=== PATIENT | male | born 1995 | race Caucasian/White ===

== ENCOUNTER 2020-02-07 16:33 | Outpatient (REF) | payer OTHER, SELFPAY ==
--- NOTE | 2020-02-07 | XR_ITS ---
EXAMINATION: XR ANKLE, RIGHT CLINICAL INFORMATION: Pain. Evaluate for fracture. COMPARISON: None TECHNIQUE: AP, lateral, and mortise views of the right ankle. FINDINGS: Bones have normal alignment. The ankle joint space and syndesmotic space are normal. No arthritic deformity. No fracture, subluxation or focal soft tissue swelling. XR/XR ankle RT min 3V IMPRESSION: Normal right ankle.
== END 2020-02-07 16:34 | disposition home or self-care (01) ==
LOC: HO.XRAY 16:33
PROVIDERS: PCP Internal Medicine; Visit Provider Internal Medicine
DX: M25.571 Pain in right ankle and joints of right foot (principal)
CPT/HCPCS: 73610

== ENCOUNTER 2022-10-13 14:15 | Outpatient (REF) | payer BC, SELFPAY ==
--- NOTE | ~2022-10-13 | XR_ITS ---
EXAMINATION: XR CHEST CLINICAL INFORMATION: Chest pain COMPARISON: None available. TECHNIQUE: 2 views of the chest were obtained. FINDINGS: Cardiac silhouette is normal in size. The lungs are well aerated. There is no lobar consolidation. No pleural effusion or pneumothorax. No acute osseous abnormality. XR/XR chest 2V IMPRESSION: No acute pulmonary pathology.
--- NOTE | 2022-10-13 14:22 | ECG_ITS ---
Test Reason : cp Blood Pressure : / mmHG Vent. Rate : 061 BPM Atrial Rate : 061 BPM P-R Int : 132 ms QRS Dur : 106 ms QT Int : 434 ms P-R-T Axes : 014 019 031 degrees QTc Int : 436 ms Normal sinus rhythm Normal ECG No previous ECGs available Referred By: Adiel Hamm Electronically Signed By:DOMINIQUE VELASCO
== END 2022-10-13 14:16 | disposition home or self-care (01) ==
LOC: HO.XRAY 14:15
PROVIDERS: PCP Physician Assistant; Visit Provider Physician Assistant
DX: R07.9 Chest pain, unspecified (principal)
CPT/HCPCS: 71046; 93005

== ENCOUNTER 2022-10-27 15:39 | Outpatient (REF) | payer BC, SELFPAY ==
--- NOTE | ~2022-10-27 | XR_ITS ---
EXAMINATION: XR SKULL CLINICAL INFORMATION: Localized swelling, mass and lump. Unspecified location. COMPARISON: None available. TECHNIQUE: 5 views of the skull were obtained. FINDINGS: No discrete displaced fractures. Paranasal sinuses are grossly clear. No abnormal soft tissue calcifications. XR/XR skull min 4V IMPRESSION: No discrete radiographic abnormality, however radiographic examinations have very limited sensitivity for detection of nondisplaced stress fractures as well as soft tissue abnormalities. Therefore, further evaluation with CT or MRI could be obtained if clinically deemed appropriate.
--- NOTE | ~2022-10-27 | XR_ITS ---
EXAMINATION: XR HIP, RIGHT, WITH AP PELVIS CLINICAL INFORMATION: Right hip pain. COMPARISON: None available. TECHNIQUE: Two views of the right hip. Also, AP view of pelvis. FINDINGS: Pelvic bones have normal alignment. Joint space of each hip is maintained. At the right hip, the acetabulum has normal shape and provides a normal degree of femoral head coverage. There is slightly aspherical shape of the right femoral head with presence of mild osseous prominence along the posterior head-neck junction, possibly predisposing to femoroacetabular impingement. The articular surface has normal smooth contour. No evidence of osteonecrosis, fracture or subluxation. The soft tissues are unremarkable. XR/XR hip RT w PEL1V IMPRESSION: * No acute abnormality to right hip. No fracture or subluxation. * No evidence of arthritic disease. 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
== END 2022-10-27 15:40 | disposition home or self-care (01) ==
LOC: HO.XRAY 15:39
PROVIDERS: PCP Physician Assistant; Visit Provider Physician Assistant
DX: M25.551 Pain in right hip (principal); R22.0 Localized swelling, mass and lump, head
CPT/HCPCS: 70260; 73502

== ENCOUNTER 2022-12-23 14:53 | Outpatient (AMB) | payer BC, SELFPAY ==
--- NOTE | 2022-12-23 14:54 | MHC.OFFVIS ---
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 He describes his discomfort as achy in nature. He also reports intermittent ?popping sensation? along the lateral aspect of his right hip. He denies any numbness or tingling in either of his legs. He denies any trauma to his right hip or leg. He does not take any medicines for his discomfort. 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 Current occupational exposures/hazards: No Cognitive needs: No Hearing needs: No Vision needs: No Physical Exam Vital Signs: BMI result Body Mass Index 24.1 Const Other: Well-nourished well-developed very friendly male awake alert and oriented x3 in no acute distress Extrem Other: Bilateral lower extremity examination shows good capillary refill, no skin lesions noted, normal sensation light touch Right hip examination shows full range of motion when compared to his left hip, minimal discomfort with range of motion, tenderness over his iliotibial band, no overlying skin lesions Results Reviewed Results Reviewed: X-rays of the patient's right hip show minimal diffuse joint space narrowing, no acute bony abnormalities, no significant acetabular dysplasia Assessment & Plan Assessment & Plan (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 Hylton presents with intermittent discomfort and popping sensation along the lateral aspect of his right hip most likely due to iliotibial band syndrome. I had a lengthy discussion with the patient regarding the treatment options. Stretching exercises and activity modifications were discussed at length with the patient. The patient does not wish to go to formal physical therapy at this time. He will follow up with me on an as-needed basis should his symptoms worsen in any way. Feel free to call me at any time should questions regarding his orthopedic management arise. Thank you very much for asking me to see this very friendly gentleman. I spent 22 minutes in reviewing the patient's records and imaging studies, seeing the patient and documenting in the medical record. Coding Level of Care Code New Pt Level 2 (07452) Diagnoses ITB syndrome M76.30
[2022-12-23 15:04] VITALS: BMI 24.1
== END 2022-12-23 15:17 | disposition home or self-care (01) ==
PROVIDERS: PCP Physician Assistant; Visit Provider Orthopaedic Surgery
DX: M76.30 Iliotibial band syndrome, unspecified leg (principal)
CPT/HCPCS: 99202

== ENCOUNTER → 2022-12-23 14:53 | Outpatient (BNVA) | payer BC, SELFPAY | PROVIDERS: PCP Physician Assistant; Visit Provider Orthopaedic Surgery ==

== ENCOUNTER 2023-12-29 14:06 | Outpatient (AMB) | payer BC, SELFPAY ==
--- NOTE | 2023-12-29 14:13 | MHC.PC.OV ---
Intake Visit Reasons: Certain things are concerning me with my health. Financial Coordinator Required: No Accompanied by: Self / Same As Patient Allergies No Known Allergies Allergy (Verified 12/29/23 14:46) Medication List - Last Reconciled 12/29/23 by Adiel Hamm PA-C cetirizine (Zyrtec) 10 mg PO DAILY PRN citalopram (Celexa) 10 mg PO DAILY 30 days mupirocin 2% 1 appl topical BID 15 days Tobacco use date assessed: 12/29/23 Dental Screening Dental Screen Date: 12/29/23 Did you have a dental visit in the last 12 months?: Yes Did you have a dental problem in the last 6 months where you did not have access to dental care?: No Was dental information given to patient?: Patient has dentist HPI Certain things are concerning me with my health. HPI Details Patient is a 28-year-old male here today for concerns about his health. He reports over last several weeks having a lower back issue. He reports when he lays down he has some discomfort in the back part of his left leg. He does report some upper back and lower back injuries playing basketball years ago. He also does report having some right hip discomfort and crepitus when he flexes and extends his right hip. He feels that his pelvis is not align. 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 1. Little interest or pleasure in doing things: several days 2. Feeling down, depressed, or hopeless: several days 3. Trouble falling or staying asleep, or sleeping too much: not at all 4. Feeling tired or having little energy: not at all 5. Poor appetite or overeating: not at all 6. Feeling bad about yourself - or that you are a failure or have let yourself or your family down: not at all 7. Trouble concentrating on things, such as reading the newspaper or watching television: not at all 8. Moving or speaking so slowly that other people could have noticed. Or the opposite - being so fidgety or restless that you have been moving around a lot more than usual: not at all 9. Thoughts that you would be better off or of hurting yourself in some way: not at all Total score: 2 Depression Screening Interpretation: Negative Depression Screening Done: Yes 97710 - PHQ-9 Billing: Yes Source: Developed by Drs. Umberto Mills, Alicia Hearn, James Bello and colleagues, with an educational blu from [employer]. Thrive Questionnaire Date Thrive assessed: 12/29/23 I am a: Patient What is your living situation today?: I have a steady place to live Within the past 12 months, did the food you bought not last and you didn't have the money to get more?: Never true Within the past 12 months, did you worry whether your food would run out before you got money to buy more?: Never true Do you have trouble paying for medicines?: No Do you have trouble getting transportation to medical appointments?: No Do you have trouble paying your heating and electricity bill?: No Do you have trouble taking care of your child, family member or friend?: No Do you have trouble with day-to-day activities such as bathing, preparing meals, shopping, managing finances, etc.?: No Are you currently unemployed and looking for a job?: No Are you interested in more education?: No Please select the resources that you would like help with: None Currently or been in a relationship where the following occur: No concerns reported THRIVE Score: 0 AUDIT C Alcohol Use Questionnaire (AUDIT-C) 2. How many drinks containing alcohol do you have on a typical day when you are drinking?: 7 to 9 3. How often do you have six or more drinks on one occasion?: Weekly Total Score: 6 ROBBY-7 AMB Questionnaire ROBBY-7 Date ROBBY - 7 assessed: 12/29/23 Feeling nervous, anxious, or on edge: 0 = Not at all Not being able to stop or control worryin = Not at all Worrying too much about different things: 0 = Not at all Trouble relaxin = Not at all Being so restless that it is hard to sit still: 0 = Not at all Becoming easily annoyed or irritable: 0 = Not at all Feeling afraid as if something awful might happen: 0 = Not at all Total ROBBY-7 score (0-4 normal; 5-9 mild; 10-14 moderate; 15-21 severe): 0 Source: Developed by Drs. Umberto Mills, Alicia Hearn, James Bello and colleagues, with an educational blu from [employer]. ROBBY-7 Assessment Billing ROBBY-7 Assessment Tool: ROBBY-7 Assessment 64790 Review of Systems Const Denies headache(s) Eyes Denies loss of vision ENT Denies vertigo, Denies dizziness, Denies headache(s) and Denies sore throat Card Denies chest pain, Denies leg edema and Denies lightheadedness Resp Denies cough, Denies hemoptysis and Denies wheezing GI Denies abdominal pain, Denies melena, Denies constipation, Denies diarrhea and Denies vomiting Denies dysuria, Denies urinary frequency and Denies urinary urgency Musc Denies arthralgias, Denies joint swelling, Denies numbness and Denies tingling Neuro Denies Abnormal speech present, Denies behavioral changes, Denies vertigo, Denies dizziness, Denies headache(s), Denies loss of vision, Denies memory loss, Denies numbness and Denies tingling Psych Denies anxiety, Denies behavioral changes, Denies depression, Denies memory loss and Denies panic attacks Nacho/Lymph Denies easy bleeding and Denies easy bruising Aller/Immun Denies wheezing Physical exam (Primary Care) Tobacco/Smoking Status: Tobacco use Status Tobacco use date assessed 12/29/23 12/29/23 14:26 Patient Tobacco Use Status Never used Tobacco 12/29/23 14:15 e-Cigarette/Vaping Use Never Used 12/29/23 14:15 PHQ-9: PHQ-9 Score PHQ-9: Total score 2 12/29/23 14:15 Depression Screening Interpretation: Negative Thrive Assessment: Date of Thrive Assessment Date Thrive assessed 12/29/23 12/29/23 14:15 Currently or been in a relationship where the following occur: No concerns reported Const General: healthy appearing, no acute distress, alert and awake Nutritional Appearance: well nourished Orientation/consciousness: oriented to person, oriented to place and oriented to time HENMT Ears: TM's normal bilaterally General nose exam: Normal nasal mucous membranes and turbinates present Eyes Conjunctivae: conjunctivae normal Sclerae: sclerae normal Pupils: Equal, round and reactive pupils present Neck Neck: Yes no lymphadenopathy and Yes no JVD Thyroid: Thyroid normal Carotids: no bruits Resp Effort & Inspection: normal respiratory effort and not tachypneic Auscultation: no crackles, no rales, no rhonchi and no wheezes Cardio Rate: regular rate Rhythm: regular rhythm Heart sounds: no murmurs and normal S1 and S2 GI Palpation (GI): Soft to palpation, nontender, no hepatomegaly and no splenomegaly Auscultation: normal bowel sounds Skin General skin exam: no rashes or lesions noted and dry skin Neuro General: oriented to person, oriented to place and oriented to time Cranial nerves: Yes Equal, round and reactive pupils present Speech: No Abnormal speech present Gait exam (Neuro): Normal gait present Motor exam (neuro): no tremor noted Extrem Right upper extremity: full ROM Left upper extremity: full ROM Right lower extremity: full ROM; no edema Left lower extremity: full ROM; no edema Psych Mental Status: mental status grossly normal Speech and movement: Normal speech and movement present Affect: normal affect Attitude: cooperative Thought process: Normal thought process present Office Procedures Flu Questionnaire Does the patient have a severe egg allergy?: No Immunizations Fluarix Triv [id number] (PF) 45 mcg (15 mcg x 3)/0.5 mL IM syringe Performing Provider: Adiel Hamm PA-C [facility] [place] [facility] Documented (not given) by: SHELBY Stacy on 12/29/23 14:26 Reason Not Given: Patient Refused Coding Level of Care Code Est Pt Level 3 (76798) Diagnoses Lumbar radiculitis M54.16 Thoracic radiculitis M54.14 Additional Codes ROBBY-7 Assessment Billing - ROBBY-7 Assessment Tool: ROBBY-7 Assessment 29866 ([id number]) Assessment & Plan Assessment & Plan (1) Lumbar radiculitis: Code(s): M54.16 - Radiculopathy, lumbar region Category: Medical Plan: As per HPI will send for x-ray of his lumbar spine to evaluate for any advanced arthritis or disc height loss. He would likely benefit from formal physical therapy for his lower back radiculopathy. (2) Thoracic radiculitis: Code(s): M54.14 - Radiculopathy, thoracic region Category: Medical Plan: As per HPI Orders: Orders Influenza [id number] Immunization Today Z23 - Encounter for immunization XR lumbar spine 4V min Today M54.16 - Radiculopathy, lumbar region XR thoracic spine 3V Today M54.14 - Radiculopathy, thoracic region Comprehensive [place]. Panel Fast Today Z13.1 - Encounter for screening for diabetes mellitus Complete Blood Count no Diff Today Z13.1 - Encounter for screening for diabetes mellitus PT Evaluation and Treatment Today M54.16 - Radiculopathy, lumbar region Medications: New cyclobenzaprine 10 mg PO BEDTIME 14 days 14 tabs 0RF M54.16 - Radiculopathy, lumbar region
== END 2023-12-29 15:01 | disposition home or self-care (01) ==
LOC: HO.HMCH 14:07
PROVIDERS: PCP Physician Assistant; Visit Provider Physician Assistant
DX: M54.16 Radiculopathy, lumbar region (principal); M54.14 Radiculopathy, thoracic region; Z23 Encounter for immunization

== ENCOUNTER → 2023-12-29 14:06 | Outpatient (BNVA) | payer BC, SELFPAY | PROVIDERS: PCP Physician Assistant; Visit Provider Physician Assistant | DX: M54.16 Radiculopathy, lumbar region (principal); M54.14 Radiculopathy, thoracic region; Z28.21 Immunization not carried out because of patient refusal | CPT/HCPCS: 90471; 96127 ==

== ENCOUNTER 2024-04-29 08:32 | Outpatient (REF) | payer BC, SELFPAY ==
--- NOTE | ~2024-04-29 | XR_ITS ---
EXAMINATION: XR THORACIC SPINE CLINICAL INFORMATION: M54.14 - Radiculopathy, thoracic region COMPARISON: None available. TECHNIQUE: 3 views of the thoracic spine were obtained. FINDINGS: There is maintained thoracic kyphosis with mild dextroscoliosis mid dorsal spine. The vertebral heights and alignment and the disc heights are preserved. No visible acute fracture, lytic or sclerotic process seen. The soft tissues are normal. The paravertebral soft tissues are normal. XR/XR thoracic spine 3V IMPRESSION: Mild dextroscoliosis mid dorsal spine. No visible acute fracture, dislocation or subluxation seen. Electronically signed by: Barry Sanchez MD 05/01/2024 10:16 AM RICA
--- NOTE | ~2024-04-29 | XR_ITS ---
EXAMINATION: Lumbar spine 4 views. CLINICAL INDICATION: Radiculopathy lumbar region. COMPARISON: None. FINDINGS: There is normal lumbar lordosis. The vertebral heights and alignment is normal. The disc heights are normal. No visible acute fracture, dislocation or lytic process seen. The paravertebral soft tissues are normal. XR/XR lumbar spine 4V min IMPRESSION: Unremarkable lumbar spine exam. Electronically signed by: Barry Sanchez MD 05/01/2024 10:15 AM RICA
[2024-04-29 09:27] LABS: Hematocrit 43.6 % (42.0-52.0); Hemoglobin 15.5 g/dl (14.0-18.0); Mean Corpuscular HGB Conc 35.6 g/dl (31.0-36.0); Mean Corpuscular Hemoglobin 31.1 pg (27.0-33.0); Mean Corpuscular Volume 87.6 fL (80.0-98.0); Mean Platelet Volume 9.1 fL (9.4-12.4); Platelet Count 256 X10*3/uL (160-400); Red Blood Count 4.98 X10*6/uL (4.60-5.80); White Blood Count 7.6 X10*3/uL (4.8-10.8)
[2024-04-29 11:22] LABS: Alanine Aminotransferase 17 U/L (0-40); Albumin Level 4.5 g/dL (3.5-5.0); Alkaline Phosphatase 61 U/L (39-117); Anion Gap 13 (12-20); Aspartate Amino Transferase 24 U/L (5-37); Bilirubin Total 1.1 mg/dL (0.0-1.0); Blood Urea Nitrogen 10 mg/dL (9-16); Calcium 9.1 mg/dL (8.4-10.2); Carbon Dioxide 26 mmol/L (22-29); Chloride 105 mmol/L (96-108); Estimated Glomerular Filt Rate > 60; Glucose Fasting 95 mg/dL (60-99); Potassium 3.6 mmol/L (3.3-5.1); Sodium 140 mmol/L (135-145); Total Protein 7.7 g/dL (6.5-8.0)
== END 2024-04-29 08:33 | disposition home or self-care (01) ==
LOC: HO.LAB 08:32
PROVIDERS: PCP Physician Assistant; Visit Provider Physician Assistant
DX: M54.16 Radiculopathy, lumbar region (principal); M54.14 Radiculopathy, thoracic region; Z13.1 Encounter for screening for diabetes mellitus
CPT/HCPCS: 36415; 72072; 72110; 80053; 85027

== ENCOUNTER → 2024-04-29 08:52 | Outpatient (BNV) | payer BC, SELFPAY | PROVIDERS: PCP Physician Assistant; Visit Provider Radiology Diagnostic Radiology | DX: M54.14 Radiculopathy, thoracic region (principal); M54.16 Radiculopathy, lumbar region | CPT/HCPCS: 72072; 72110 ==

== ENCOUNTER 2024-05-11 15:24 | Outpatient (REF) | payer BC, SELFPAY ==
--- NOTE | ~2024-05-11 | US_ITS ---
EXAMINATION: COLOR-FLOW DUPLEX IMAGING OF THE BILATERAL LOWER EXTREMITY ARTERIAL SYSTEM WITH VELOCITY MEASUREMENTS. CLINICAL INFORMATION: 28-year-old male with leg pain on the right. Comparison: None. FINDINGS: There is no significant atherosclerotic disease identified. RIGHT FEMORAL RUNOFF VELOCITIES: The right common femoral artery measures 51 cm/s and triphasic. The right profunda femoral artery is 19 cm/s and is triphasic. The right proximal superficial femoral artery measures 59 cm/s and triphasic. The right mid superficial femoral artery is 31 cm/s and triphasic. The right distal right superficial femoral artery measures 36 cm/s and is triphasic. The right popliteal velocity measures 28 cm/s and is triphasic. The right posterior tibial artery velocity measures 15 cm/s and is triphasic. The right peroneal artery velocity measures 36 cm/s and is triphasic. The right anterior tibial artery velocity measures 58 cm/s and is triphasic. The right dorsalis pedis artery velocity measures 52 cm/s second and is triphasic. LEFT FEMORAL RUNOFF VELOCITIES: The left common femoral artery measures 36 cm/s and triphasic. The left profunda femoral artery is 29 cm/s and is triphasic. The left proximal superficial femoral artery measures 36 cm/s and triphasic. The left mid superficial femoral artery is 37 cm/s and triphasic. The left distal right superficial femoral artery measures 29 cm/s and is triphasic. The left popliteal velocity measures 37 cm/s and is triphasic. The left posterior tibial artery velocity measures 40 cm/s and is triphasic. The left peroneal artery velocity measures 28 cm/s and is triphasic. The left anterior tibial artery velocity measures 57 cm/s and is triphasic. The left dorsalis pedis artery velocity measures 55 cm/s second and is triphasic. US/US arterial duplex LE BI IMPRESSION: 1. Normal peripheral arterial testing with velocity measurements. Normal waveforms throughout. 2. No atherosclerotic disease. Electronically signed by: Twin Jules MD 05/12/2024 02:20 PM EDT
== END 2024-05-11 15:25 | disposition home or self-care (01) ==
LOC: HO.US 15:24
PROVIDERS: PCP Physician Assistant; Visit Provider Physician Assistant
DX: M79.604 Pain in right leg (principal); M79.605 Pain in left leg; R22.43 Localized swelling, mass and lump, lower limb, bilateral
CPT/HCPCS: 93925

== ENCOUNTER → 2024-05-11 15:32 | Outpatient (BNV) | payer BC, SELFPAY | PROVIDERS: PCP Physician Assistant; Visit Provider Radiology Diagnostic Radiology | DX: M79.604 Pain in right leg (principal); M79.605 Pain in left leg | CPT/HCPCS: 93925 ==

== ENCOUNTER 2024-12-13 14:56 | Outpatient (AMB) | payer BC, SELFPAY ==
[2024-12-13 15:05] VITALS: BP 116/68; PULSE 72; TEMP 36.1; O2SAT 97; BMI 22.6
--- NOTE | 2024-12-13 15:05 | MHC.PC.OV ---
Vital Signs 12/13/24 15:05 Height 6 ft 1 in Weight 171 lb BMI 22.6 BP 116/68 Blood Pressure Location Lt brachial Position Sitting Pulse 72 Pulse Source Pulse Oximeter Temp 97.0 F Temp Source Temporal Artery Scan Pulse Oximetry (%) 97 Oxygen Delivery Method Room Air Intake Visit Reasons: discuss lump on head Allergies No Known Allergies Allergy (Verified 12/13/24 15:15) Medication List - Last Reconciled 12/13/24 by Adiel Hamm PA-C cetirizine (Zyrtec) 10 mg PO DAILY PRN citalopram (Celexa) 10 mg PO DAILY 30 days Tobacco use date assessed: 12/13/24 Dental Screening Dental Screen Date: 12/13/24 Did you have a dental visit in the last 12 months?: Yes Did you have a dental problem in the last 6 months where you did not have access to dental care?: No Was dental information given to patient?: Patient has dentist HPI discuss lump on head HPI Details The patient is a 29-year-old male presenting with a lump on the head and associated pain. The patient reports a lump on the scalp, which was previously evaluated with an X-ray in 2022 that showed no abnormalities. Recently, the patient has experienced pain in the area near the lump, described as pressure that is not consistent with the rest of the head. The lump is tender upon firm palpation but not with soft pressure, and there is no redness or signs of infection. The patient has experienced weight loss, dropping from 183 pounds to 171 pounds since the last visit. He attributes this to increased stress and decreased appetite, possibly related to family circumstances and expecting a third child. 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 1. Little interest or pleasure in doing things: not at all 2. Feeling down, depressed, or hopeless: several days 3. Trouble falling or staying asleep, or sleeping too much: several days 4. Feeling tired or having little energy: not at all 5. Poor appetite or overeating: not at all 6. Feeling bad about yourself - or that you are a failure or have let yourself or your family down: several days 7. Trouble concentrating on things, such as reading the newspaper or watching television: not at all 8. Moving or speaking so slowly that other people could have noticed. Or the opposite - being so fidgety or restless that you have been moving around a lot more than usual: not at all 9. Thoughts that you would be better off or of hurting yourself in some way: not at all Total score: 3 Depression Screening Interpretation: Positive Depression Screening Done: Yes 26996 - PHQ-9 Billing: Yes Source: Developed by Drs. Umberto Mills, Alicia Hearn, James Bello and colleagues, with an educational blu from [employer]. Thrive Questionnaire Date Thrive assessed: 12/12/24 I am a: Patient What is your living situation today?: I have a steady place to live Within the past 12 months, did the food you bought not last and you didn't have the money to get more?: Never true Within the past 12 months, did you worry whether your food would run out before you got money to buy more?: Never true Do you have trouble paying for medicines?: No Do you have trouble getting transportation to medical appointments?: No Do you have trouble paying your heating and electricity bill?: No Do you have trouble taking care of your child, family member or friend?: No Do you have trouble with day-to-day activities such as bathing, preparing meals, shopping, managing finances, etc.?: No Are you currently unemployed and looking for a job?: No Are you interested in more education?: No Please select the resources that you would like help with: None Currently or been in a relationship where the following occur: No concerns reported THRIVE Score: 0 AUDIT C Alcohol Use Questionnaire (AUDIT-C) 1. How often do you have a drink containing alcohol?: 2-3 times a week 2. How many drinks containing alcohol do you have on a typical day when you are drinking?: 3 or 4 3. How often do you have six or more drinks on one occasion?: Less than monthly Total Score: 5 ROBBY-7 AMB Questionnaire ROBBY-7 Date ROBBY - 7 assessed: 12/13/24 Feeling nervous, anxious, or on edge: 1 = Several days Not being able to stop or control worryin = Several days Worrying too much about different things: 1 = Several days Trouble relaxin = Not at all Being so restless that it is hard to sit still: 0 = Not at all Becoming easily annoyed or irritable: 1 = Several days Feeling afraid as if something awful might happen: 1 = Several days Total ROBBY-7 score (0-4 normal; 5-9 mild; 10-14 moderate; 15-21 severe): 5 Source: Developed by Drs. Umberto Mills, Alicia Hearn, James Bello and colleagues, with an educational blu from [employer]. ROBBY-7 Assessment Billing ROBBY-7 Assessment Tool: ROBBY-7 Assessment 63875 Review of Systems Const Denies headache(s) Eyes Denies loss of vision ENT Denies vertigo, Denies dizziness, Denies headache(s) and Denies sore throat Card Denies chest pain, Denies leg edema and Denies lightheadedness Resp Denies cough, Denies hemoptysis and Denies wheezing GI Denies abdominal pain, Denies melena, Denies constipation, Denies diarrhea and Denies vomiting Denies dysuria, Denies urinary frequency and Denies urinary urgency Musc Denies arthralgias, Denies joint swelling, Denies numbness and Denies tingling Neuro Denies Abnormal speech present, Denies behavioral changes, Denies vertigo, Denies dizziness, Denies headache(s), Denies loss of vision, Denies memory loss, Denies numbness and Denies tingling Psych Denies anxiety, Denies behavioral changes, Denies depression, Denies memory loss and Denies panic attacks Nacho/Lymph Denies easy bleeding and Denies easy bruising Aller/Immun Denies wheezing Physical exam (Primary Care) Vital Signs: Last Vital Signs Temp 97.0 F 12/13/24 15:05 Pulse 72 12/13/24 15:05 BP 116/68 12/13/24 15:05 Pulse Ox 97 12/13/24 15:05 Oxygen Delivery Method Room Air 12/13/24 15:05 BMI result Body Mass Index 22.6 Tobacco/Smoking Status: Tobacco use Status Tobacco use date assessed 12/13/24 12/13/24 15:09 Patient Tobacco Use Status Never used Tobacco 12/13/24 15:09 e-Cigarette/Vaping Use Never Used 12/13/24 15:09 PHQ-9: PHQ-9 Score PHQ-9: Total score 3 12/13/24 15:09 Depression Screening Interpretation: Positive Thrive Assessment: Date of Thrive Assessment Date Thrive assessed 12/12/24 12/13/24 15:09 Currently or been in a relationship where the following occur: No concerns reported Const General: healthy appearing, no acute distress, alert and awake Nutritional Appearance: well nourished Orientation/consciousness: oriented to person, oriented to place and oriented to time [facility] Head images:  1. SMALL PALPABLE BALL LIKE SUBCUTANEOUS LESION IN THE AREA OUTLINED ON THE SCALP Ears: TM's normal bilaterally General nose exam: Normal nasal mucous membranes and turbinates present Eyes Conjunctivae: conjunctivae normal Sclerae: sclerae normal Pupils: Equal, round and reactive pupils present Neck Neck: Yes no lymphadenopathy and Yes no JVD Thyroid: Thyroid normal Carotids: no bruits Resp Effort & Inspection: normal respiratory effort and not tachypneic Auscultation: no crackles, no rales, no rhonchi and no wheezes Cardio Rate: regular rate Rhythm: regular rhythm Heart sounds: no murmurs and normal S1 and S2 GI Palpation (GI): Soft to palpation, nontender, no hepatomegaly and no splenomegaly Auscultation: normal bowel sounds Skin General skin exam: no rashes or lesions noted and dry skin Neuro General: oriented to person, oriented to place and oriented to time Cranial nerves: Yes Equal, round and reactive pupils present Speech: No Abnormal speech present Gait exam (Neuro): Normal gait present Motor exam (neuro): no tremor noted Extrem Right upper extremity: full ROM Left upper extremity: full ROM Right lower extremity: full ROM; no edema Left lower extremity: full ROM; no edema Psych Mental Status: mental status grossly normal Speech and movement: Normal speech and movement present Affect: normal affect Attitude: cooperative Thought process: Normal thought process present Coding Level of Care Code Est Pt Level 3 (68180) Diagnoses Dermoid cyst of scalp D23.4 Additional Codes ROBBY-7 Assessment Billing - ROBBY-7 Assessment Tool: ROBBY-7 Assessment 80845 ([id number]) PHQ-9 - 35328 - PHQ-9 Billing: Yes ([id number]) Assessment & Plan Assessment & Plan (1) Dermoid cyst of scalp: Code(s): D23.4 - Other benign neoplasm of skin of scalp and neck Category: Medical Plan: The patient will be referred to a general surgeon for evaluation and potential removal of the scalp cyst. This decision is based on the presence of a lump that is tender upon palpation, although the X-ray showed no abnormalities. The patient expressed concern about the radiation exposure from a CT scan, and it was agreed that a surgical consultation would be a safer option at this time. Orders: Orders Complete Blood Count no Diff Today Z13.1 - Encounter for screening for diabetes mellitus PT Evaluation and Treatment Today M51.9 - Unspecified thoracic, thoracolumbar and lumbosacral intervertebral disc disorder, M54.16 - Radiculopathy, lumbar region Comprehensive [place]. Panel Fast Today Z13.1 - Encounter for screening for diabetes mellitus Referrals General Surgery Referral D23.4 - Other benign neoplasm of skin of scalp and neck
== END 2024-12-13 15:24 | disposition home or self-care (01) ==
LOC: HO.HMCH 14:57
PROVIDERS: PCP Physician Assistant; Visit Provider Physician Assistant
DX: D23.4 Other benign neoplasm of skin of scalp and neck (principal)

== ENCOUNTER → 2024-12-13 14:56 | Outpatient (BNVA) | payer BC, SELFPAY | PROVIDERS: PCP Physician Assistant; Visit Provider Physician Assistant | DX: M54.16 Radiculopathy, lumbar region (principal); D23.4 Other benign neoplasm of skin of scalp and neck; M51.9 Unspecified thoracic, thoracolumbar and lumbosacral intervertebral disc disorder | CPT/HCPCS: 96127 ==